=== PATIENT | female | born 1980 | race Caucasian/White ===

== ENCOUNTER 2019-07-05 11:42 | Emergency (ER) | payer OTHER ==
[~2019-07-05] VITALS: Ht 167.6 cm; Wt 93.9 kg
--- NOTE | ~2019-07-05 | EKG ---
[place], [place] ELECTROCARDIOGRAM REPORT NAME: TAMIA SANDOVAL UNIT #: [id number] ROOM: DOCTOR: EPIPHANY DRAFT REPORT BIRTHDATE: [birth year] [facility] Test Date: 2019-07-05 Test Time: 12:03:03 Pat Name: TAMIA SANDOVAL Department: Room: Gender: F Mri Supervisor: Meredith Pierce : 1980 Requested By: TORSTEN KING Order Number: [id number] Reading MD: Glenys Raymond MD Measurements Intervals [place] Rate: 51 P: 39 [place]: 137 QRS: 27 QRSD: 87 T: 17 QT: 427 QTc: 394 Interpretive Statements Sinus rhythm No previous ECG available for comparison Electronically Signed On 07-06-2019 7:47:03 PDT by Glenys Raymond MD CM:EKGRPT:ELECTROCARDIOGRAM REPORT 1203 [id number] TORSTEN KING MD EPIPHMARS DRAFT REPORT TORSTEN KING MD
--- NOTE | ~2019-07-05 | EKG ---
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
--- NOTE | ~2019-07-05 | EKG ---
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
[2019-07-05 11:59] LABS: BASO # 0.1 10*3/uL (0.0-0.1); BASO % 0.6 % (0.0-1.0); EOS # 0.2 10*3/uL (0.0-0.4); EOS % 2.2 % (1.0-4.0); HEMATOCRIT 40.7 % (37.0-47.0); HEMOGLOBIN 13.2 g/dl (12.0-16.0); LYMPH # 2.1 10*3/uL (1.3-4.4); MEAN CELL VOLUME 90.2 fl (81.0-99.0); MEAN CORPUSCULAR HGB 29.3 pg (27.0-31.0); MEAN CORPUSCULAR HGB CONC 32.4 g/dl (33.0-37.0); MEAN PLATELET VOLUME 10.6 fl (9.6-12.3); MONO # 0.4 10*3/uL (0.1-1.0); MONO % 4.6 % (3.0-9.0); NEUT # 6.2 10*3/uL (2.3-7.9); NEUT % 69.2 % (47.0-73.0); PLATELET COUNT AUTOMATED 266 10*3/uL (130-400); RED BLOOD COUNT 4.51 10*6/uL (4.10-5.10); RED CELL DISTRI WIDTH 14.3 % (0-14.5)
[2019-07-05 12:18] LABS: ALBUMIN 3.6 gm/dl (3.1-4.5); ALKALINE PHOSPHATASE 79 U/L (45-117); BUN 14 mg/dl (7-24); CHLORIDE 105 mmol/L (98-107); CREATININE 1.05 mg/dL (0.55-1.02); POTASSIUM 3.8 mmol/L (3.5-5.1); SGOT/AST 14 IU/L (3-35); SGPT/ALT 20 U/L (12-78); SODIUM 138 mmol/L (136-145); TOTAL PROTEIN 7.5 gm/dL (6.4-8.2)
[2019-07-05 12:29] LABS: BILIRUBIN NEGATIVE (NEGATIVE); BLOOD 2+ (NEGATIVE); CLARITY SL CLOUDY (CLEAR); COLOR YELLOW (YELLOW); GLUCOSE NEGATIVE (NEGATIVE); KETONE NEGATIVE (NEGATIVE); LEUKO ESTERASE 1+ (NEGATIVE); NITRITE NEGATIVE (NEGATIVE); PH 6.5 (5.0-9.0); SPECIFIC GRAVITY 1.015 (1.005-1.030); UROBILINOGEN 0.2 E.U./dl (0.2-1.0)
[2019-07-05 12:38] LABS: BACTERIA 2+; MUCOUS TRACE
[2019-07-05 12:40] LABS: URINE AMPHETAMINES < 1000 (1000ng/ml); URINE BARBITURATES < 200 (200ng/ml); URINE BENZODIAZEPINES < 200 (200ng/ml); URINE CANNABINOIDS (THC) > 50 (50ng/ml); URINE COCAINE < 300 (300ng/ml); URINE METHADONE < 300 (300ng/ml); URINE OPIATES < 300 (300ng/ml)
[2019-07-05 12:43] LABS: URINE PHENCYCLIDINE < 25 (25ng/ml)
== END 2019-07-05 14:43 | disposition home or self-care (01) ==
LOC: ED 11:42
PROVIDERS: Family Medicine
DX: I95.1 Orthostatic hypotension (principal); R42 Dizziness and giddiness; Z91.040 Latex allergy status

== ENCOUNTER 2019-11-12 10:39 | Emergency (ER) | payer OTHER ==
[~2019-11-12] VITALS: Ht 167.6 cm; Wt 79.4 kg
[2019-11-12] MEDS ORDERED: ROBAXIN-750750 MG PO ×2 (13:38→14:12)
== END 2019-11-12 15:19 | disposition home or self-care (01) ==
LOC: ED 10:39
DX: S13.9XXA Sprain of joints and ligaments of unspecified parts of neck, initial encounter (principal); S00.03XA Contusion of scalp, initial encounter; F07.81 Postconcussional syndrome; F17.200 Nicotine dependence, unspecified, uncomplicated; Z91.040 Latex allergy status; W18.09XA Striking against other object with subsequent fall, initial encounter; Y93.89 Activity, other specified; Y92.89 Other specified places as the place of occurrence of the external cause; Y99.8 Other external cause status

== ENCOUNTER 2020-02-29 11:17 | Emergency (ER) | payer OTHER ==
[~2020-02-29 11:17] MED LIST: ROBAXIN-750750 MG PO
== END 2020-02-29 12:05 | disposition home or self-care (01) ==
LOC: ED 11:17
DX: S80.12XA Contusion of left lower leg, initial encounter (principal); F17.200 Nicotine dependence, unspecified, uncomplicated; Z91.040 Latex allergy status; W22.8XXA Striking against or struck by other objects, initial encounter; Y93.89 Activity, other specified; Y92.89 Other specified places as the place of occurrence of the external cause; Y99.8 Other external cause status

== ENCOUNTER → 2020-06-15 | Outpatient (CLI) | payer OTHER | END | disposition home or self-care (01) | LOC: CT 00:53 | DX: N85.2 Hypertrophy of uterus (principal) ==

== ENCOUNTER → 2020-09-13 | Outpatient (CLI) | payer OTHER | END | disposition home or self-care (01) | LOC: COVID19 10:22 | PROVIDERS: ATTEND Internal Medicine | DX: Z20.828 Contact with and (suspected) exposure to other viral communicable diseases (principal) ==

== ENCOUNTER → 2020-09-26 | Outpatient (CLI) | payer OTHER | END | disposition home or self-care (01) | LOC: COVID19 11:10 | PROVIDERS: ATTEND Internal Medicine Gastroenterology | DX: Z20.828 Contact with and (suspected) exposure to other viral communicable diseases (principal) ==

== ENCOUNTER → 2022-06-30 | Outpatient (CLI) | payer OTHER | END | disposition home or self-care (01) | LOC: COVID19 09:15 | PROVIDERS: ATTEND Internal Medicine | DX: Z20.822 Contact with and (suspected) exposure to COVID-19 (principal) ==